=== PATIENT | female | born 1990 | race Caucasian/White ===

== ENCOUNTER 2020-10-02 01:44 | Emergency (ER) | payer OTHER ==
[~2020-10-02] VITALS: Ht 152.4 cm; Wt 59.0 kg
[2020-10-02] MEDS ORDERED: CLINDAMYCIN HCL 150MG CAPSULE PO SCH (02:15)
[2020-10-02] MEDS ORDERED: LIDOCAINE HCL 4% (40MG/ML) SOLN 50ML TOP ONE (02:15)
[2020-10-02] MEDS ORDERED: DEXAMETHASONE 10 MG/ML VIAL IM ONE (02:15)
[2020-10-02] MEDS ORDERED: BENZOCAINE/LANOLIN/ALOE VERA SPRAY TOP ONE (02:30)
[2020-10-02 03:02] VITALS: BP 128/88
[2020-10-02] MEDS ORDERED: TETRACAINE/BENZOCAINE/BUTAMBEN 20 GM SPRAY MM SCH (03:15)
[2020-10-02] MEDS ORDERED: CLIN300C12 MT (03:39)
[2020-10-02] MEDS ORDERED: IBUP-2029 MT (03:39)
[2020-10-02] MEDS ORDERED: DEXA6TAB PO (03:39)
== END 2020-10-02 03:44 | disposition home or self-care (01) ==
LOC: ER 01:44
DX: J36 Peritonsillar abscess (principal)
CPT/HCPCS: 96372; 99283; J1100; Z7610

== ENCOUNTER 2020-10-06 13:48 | Emergency (ER) | payer OTHER ==
[~2020-10-06] VITALS: Ht 152.4 cm; Wt 59.0 kg
[~2020-10-06 13:48] MED LIST: CLIN300C12 MT; DEXA6TAB PO; IBUP-2029 MT
[2020-10-06 16:13] VITALS: BP 126/78
[2020-10-06] MEDS ORDERED: CEFTRIAXONE SODIUM 1 G/VIAL IM ONE (16:15)
[2020-10-06] MEDS ORDERED: KETOROLAC 15MG/ML VIAL IV ONE (16:15)
[2020-10-06] MEDS ORDERED: LIDOCAINE HCL 1% 20ML VIAL (Pyxis) INJ INFIL ONE (16:15)
[2020-10-06] MEDS ORDERED: DEXAMETHASONE 10 MG/ML VIAL IM ONE (16:15)
[2020-10-06] MEDS ORDERED: DEXAMETHASONE 10 MG/ML VIAL IV ONE (16:15)
[2020-10-06] MEDS ORDERED: KETOROLAC 30MG/ML VIAL IM ONE (16:15)
== END 2020-10-06 15:36 | disposition left against medical advice (07) ==
LOC: ER 13:48
DX: J36 Peritonsillar abscess (principal); F90.9 Attention-deficit hyperactivity disorder, unspecified type; R59.1 Generalized enlarged lymph nodes; Z79.899 Other long term (current) drug therapy
CPT/HCPCS: 81025; 96372; 99284; J0696; J1100; J1885; J3490; Z7610